=== PATIENT | female | born 1965 | race Caucasian/White ===

== ENCOUNTER → 2016-11-07 | Outpatient (CLI) | payer BC ==
[2016-11-07 16:14] LABS: HEMOGLOBIN 16.2 gm/dl (12.3-15.3); RED BLOOD COUNT 4.88 M/UL (4.00-5.10); WHITE BLOOD COUNT 8.5 K/UL (4.5-11.0)
[2016-11-07 16:43] LABS: BUN/CREATININE RATIO 30 (0-10)
== END ==
LOC: LAB 15:50
PROVIDERS: Nurse Practitioner
DX: I25.10 Atherosclerotic heart disease of native coronary artery without angina pectoris (principal)
CPT/HCPCS: 36415; 80053; 82550; 82553; 84484; 85007; 85027

== ENCOUNTER → 2016-11-13 | Outpatient (CLI) | payer BC | LOC: HEART 5 11-08 08:30 | DX: R07.9 Chest pain, unspecified (principal); I10 Essential (primary) hypertension; N64.4 Mastodynia | CPT/HCPCS: 78452; A9502; J2785 ==

== ENCOUNTER → 2021-02-14 | Outpatient (CLI) | payer OTHER ==
[~2021-02-14] MED LIST: ASPIR-TRIN325 MG PO; ASPIRIN EC81 MG PO; ATORVASTATIN CA40 MG PO; AUGMENTIN 875-1 EACH PO; COMBIVENT INHALE4 GM INH; DOXYCYCLINE HY100 M2 PO; IPRAT-ALBUT 0.5-3 ML NEB; NITROGLYCERIN0.4 MG SL; PREDNISONE20 MG PO; TESSALON PERLE100 MG PO
== END ==
LOC: KOH-I 13:17
DX: F17.210 Nicotine dependence, cigarettes, uncomplicated (principal); R91.8 Other nonspecific abnormal finding of lung field; J98.4 Other disorders of lung
CPT/HCPCS: 71271

== ENCOUNTER → 2021-04-05 | Day surgery (SDC) | payer OTHER ==
[~2021-04-05] VITALS: Ht 160 cm; Wt 57.6 kg
[~2021-04-05] MED LIST changes: +ATORVASTATIN CA80 MG PO; +COQ1050 MG PO; +LOPRESSOR 25 MG25 MG PO; +MONTELUKAST SOD10 MG PO; +SPIRIVA RESPIMAT4 GM INH; +VITAMIN D325 MCG PO; +ZETIA10 MG PO
[2021-04-05 11:10] LABS: HEMOGLOBIN 16.3 gm/dl (12.3-15.3); RED BLOOD COUNT 5.04 M/UL (4.00-5.10); WHITE BLOOD COUNT 9.4 K/UL (4.5-11.0)
[2021-04-05 11:28] LABS: BUN/CREATININE RATIO 15 (0-10)
== END | disposition home or self-care (01) ==
LOC: OR 10:35
PROVIDERS: Surgery
DX: K41.30 Unilateral femoral hernia, with obstruction, without gangrene, not specified as recurrent (principal); K40.90 Unilateral inguinal hernia, without obstruction or gangrene, not specified as recurrent; I10 Essential (primary) hypertension; F17.210 Nicotine dependence, cigarettes, uncomplicated; I25.10 Atherosclerotic heart disease of native coronary artery without angina pectoris; I25.2 Old myocardial infarction; E78.5 Hyperlipidemia, unspecified; J41.0 Simple chronic bronchitis; Z79.82 Long term (current) use of aspirin; E55.9 Vitamin D deficiency, unspecified; Z98.51 Tubal ligation status; Z20.822 Contact with and (suspected) exposure to COVID-19; R00.1 Bradycardia, unspecified; J44.9 Chronic obstructive pulmonary disease, unspecified
CPT/HCPCS: 36415; 80053; 85027; 93005; C1781; J0690; J1100; J1170; J1885; J2001; J2250; J2370; J2405; J2704; J3010; J7030; J7120; U0002

== ENCOUNTER → 2022-02-20 | Outpatient (CLI) | payer OTHER | LOC: KOH-I 12:29 | DX: F17.210 Nicotine dependence, cigarettes, uncomplicated (principal); R91.8 Other nonspecific abnormal finding of lung field | CPT/HCPCS: 71271 ==